=== PATIENT | female | born 1995 | race Two or more races ===

== ENCOUNTER 2017-09-01 14:58 | Emergency (ER) | payer MEDICAID ==
[~2017-09-01] VITALS: Ht 170.2 cm; Wt 74.8 kg
[2017-09-01 15:17] VITALS: BP 143/78
[2017-09-01] MEDS ORDERED: ALBUTEROL SULF 2.5 MG/0.5ML(0.5%) NEB SOLN NEB ONE (15:45)
[2017-09-01] MEDS ORDERED: methylPREDNISolone SOD SUCC 125 MG/2 ML VL IV ONE (15:45)
[2017-09-01] MEDS ORDERED: IPRATROPIUM BROM 0.5 MG/2.5ML INH SOL NEB ONE (15:45)
== END 2017-09-01 16:41 | disposition home or self-care (01) ==
LOC: ER 14:58
DX: J45.901 Unspecified asthma with (acute) exacerbation (principal)
CPT/HCPCS: 94640; 96374; 99284; J2930

== ENCOUNTER 2017-09-08 09:44 | Emergency (ER) | payer MEDICAID ==
[~2017-09-08] VITALS: Ht 170.2 cm; Wt 74.8 kg
[2017-09-08] MEDS ORDERED: SODIUM CHLORIDE 0.9% 1,000 ML IV ONE (09:52)
[2017-09-08] MEDS ORDERED: methylPREDNISolone SOD SUCC 125 MG/2 ML VL IV ONE (10:00)
[2017-09-08 10:07] LABS: Basophils # (auto) 0.1 uL; Basophils % (auto) 0.8 % (0.0-2.0); Eosinophils # (auto) 1.2 uL; Eosinophils % (auto) 12.4 % (0.0-7.0); Hematocrit 42.9 % (36.0-46.0); Hemoglobin 14.7 g/dL (12.2-16.2); Lymphocytes # (auto) 3.1 uL; Lymphocytes % (auto) 31.3 % (10.0-50.0); Mean Corpuscular Hemoglobin 28.7 pg (28.0-32.0); Mean Corpuscular Hgb Conc. 34.3 g/dL (32.0-36.0); Mean Corpuscular Volume 83.6 fL (80.0-100.0); Monocytes # (auto) 0.9 uL; Monocytes % (auto) 9.5 % (0.0-12.0); Neutrophils # (auto) 4.5 uL; Nucleated Red Blood Cells % 0.1 %; Platelet Count (auto) 356 10^3/uL (140-450); Red Blood Cells 5.14 10^6/uL (4.0-5.20); Red Cell Distribution Width 13.2 % (11.8-14.3); White Blood Cell 9.7 10^3/uL (4.4-10.8)
[2017-09-08 10:22] LABS: Urine Bacteria NONE SEEN /hpf (None Seen); Urine Blood Negative /uL (Negative); Urine Specific Gravity 1.006 (1.001-1.035); Urine WBC <1 /hpf (0 - 5)
[2017-09-08 10:27] LABS: Albumin 3.7 g/dL (3.4-5.0); BUN/Creatinine Ratio 13.9; Bilirubin, Total 0.4 mg/dL (0.2-1.0); Calcium 8.6 mg/dL (8.5-10.1); Potassium 3.5 mmol/L (3.5-5.1); Total Protein 7.8 g/dL (6.4-8.2)
[2017-09-08 11:58] VITALS: BP 156/109
== END 2017-09-08 12:49 | disposition home or self-care (01) ==
LOC: EDBD 09:44 → EDUNIT# 09:44 → ER 09:44
DX: J45.901 Unspecified asthma with (acute) exacerbation (principal)
CPT/HCPCS: 36415; 71046; 80053; 81001; 81025; 83735; 85025; 94761; 96361; 96374; 99285; J2930; J7030